=== PATIENT | female | born 1975 | race African-American/Black ===

== ENCOUNTER 2018-04-10 13:31 | Emergency (ER) | payer OTHER ==
[~2018-04-10] VITALS: Ht 165.1 cm; Wt 95.3 kg
--- NOTE | 2018-04-10 14:30 | NUR ---
C/O N/V x 2 DAYS, COUGH x 1 WEEK. PT AAOX4, VSS. DENIES CP, SOB, DIZZINESS, WEAKNESS @ THIS TIME. EDWARDO ADAME @ BS FOR EVAL. WILL CONT TO MONITOR.
[2018-04-10 14:53] LABS: BASOPHILS % (AUTO) 0.5 % (0.0-2.0); EOSINOPHILS % (AUTO) 1.1 % (0.0-6.0); HEMATOCRIT 31 % (33-45); HEMOGLOBIN 10.2 g/dL (11.5-14.8); LYMPHOCYTES # (AUTO) 1.8 /CMM (0.8-4.8); LYMPHOCYTES % (AUTO) 39.3 % (20.0-44.0); MEAN CORPUSCULAR HGB CONC 33 g/dl (31.0-36.0); MEAN CORPUSCULAR VOLUME 86 fL (82-100); MONOCYTES # (AUTO) 0.1 /CMM (0.1-1.30); MONOCYTES % (AUTO) 2.9 % (2.0-12.0); NEUTROPHILS # (AUTO) 2.6 /CMM (1.8-8.9); NEUTROPHILS % (AUTO) 56.2 % (43.0-81.0); PLATELET COUNT (AUTO) 413 /CMM (150-450); WHITE BLOOD COUNT (AUTO) 4.6 K/uL (4.3-11.0)
[2018-04-10] MEDS ORDERED: ONDANSETRON HCL/PF 4 MG/2 ML VIAL IVP ONE (15:00)
[2018-04-10] MEDS ORDERED: ACETAMINOPHEN ES 500 MG TABLET PO ONE (15:00)
[2018-04-10] MEDS ORDERED: IV NS 0.9% 1,000 ML BAG IV ONE (15:00)
[2018-04-10 15:12] LABS: CALCIUM, SERUM 8.3 mg/dL (8.5-10.1); CARBON DIOXIDE 27 mmol/L (21-32); CHLORIDE 102 mmol/L (98-107); GLUCOSE 96 mg/dL (74-106); POTASSIUM 3.6 mmol/L (3.5-5.1); SODIUM SERUM 136 mmol/L (136-145); UREA NITROGEN, BLOOD 10 mg/dL (7-18)
[2018-04-10] MEDS ORDERED: ONDANSETRON HCL/PF 4 MG/2 ML VIAL ONE (15:12)
[2018-04-10] MEDS ORDERED: ACETAMINOPHEN ES 500 MG TABLET ONE (15:12)
[2018-04-10 15:17] LABS: ALANINE AMINOTRANSFERASE 20 U/L (12-78); ALBUMIN 2.6 g/dL (3.4-5.0); ALKALINE PHOSPHATASE 56 U/L (46-116); ASPARTATE AMINOTRANSFERASE 18 U/L (15-37); BILIRUBIN,DIRECT 0.1 mg/dL (0.0-0.2); BILIRUBIN,TOTAL 0.4 mg/dL (0.2-1.0); LIPASE 312 U/L (73-393); TOTAL PROTEIN, SERUM 6.7 g/dL (6.4-8.2)
[2018-04-10 15:35] LABS: APPEARANCE,URINE Clear (CLEAR); BILIRUBIN,URINE Negative (NEGATIVE); BLOOD, URINE Moderate Ery/uL (NEGATIVE); COLOR,URINE Yellow (YELLOW); KETONES,URINE Negative (NEGATIVE); LEUKOCYTE ESTERASE ,URINE Negative (NEGATIVE); NITRITE, URINE Negative (NEGATIVE); PH,URINE 6.5 (5.0-8.0); PROTEIN,URINE Trace mg/dl (NEGATIVE); UGLUCOSE Negative (NEGATIVE); UROBILINOGEN,URINE 0.2 EU/dL (0.2)
--- NOTE | 2018-04-10 15:35 | NUR ---
MEDICATED FOR NAUSEA PER ERMD ORDER, PT MICHOACANO WELL.
[2018-04-10 15:43] LABS: BACTERIA,URINE None seen /HPF (None Seen); RBC,URINE 20-50 /HPF (0-2); SQUAMOUS EPITHELIAL CELL,UR Few /HPF (None Seen)
[2018-04-10] MEDS ORDERED: predniSONE 20 MG TABLET PO ONE (17:00)
[2018-04-10] MEDS ORDERED: GABAPENTIN 100 MG CAPSULE PO ONE (17:00)
[2018-04-10] MEDS ORDERED: GABAPENTIN 100 MG CAPSULE ONE (17:11)
[2018-04-10] MEDS ORDERED: predniSONE 20 MG TABLET ONE (17:12)
[2018-04-10 18:07] VITALS: BP 118/72
--- NOTE | 2018-04-10 18:07 | NUR ---
Patient discharged to home in stable condition. Written and verbal after care instructions given. Patient verbalizes understanding of instruction. IV removed. Catheter intact and site benign. Pressure and 4x4 applied to site. No bleeding noted.
== END 2018-04-10 18:08 | disposition home or self-care (01) ==
LOC: ER 13:40
DX: J20.9 Acute bronchitis, unspecified (principal); R11.2 Nausea with vomiting, unspecified; K21.9 Gastro-esophageal reflux disease without esophagitis; F41.9 Anxiety disorder, unspecified
CPT/HCPCS: 36415; 71045-TC; 80048-TC; 80076-TC; 81000-TC; 83605-TC; 83690-TC; 84484-TC; 84703-TC; 85025-TC; 85730-TC; J2405; J7030